=== PATIENT | female | born 1955 | race Caucasian/White ===

== ENCOUNTER 2021-06-27 20:48 | Emergency (ER) | payer MEDICAID ==
[~2021-06-27] VITALS: Ht 152.4 cm; Wt 52.0 kg
[2021-06-27] MEDS ORDERED: HYDROCODONE/ACETAMINOPHEN 5/325MG TABLET PO STA (23:33)
[2021-06-27 23:43] VITALS: BP 137/70
[2021-06-28 00:08] LABS: BASOPHILS % 1.3 % (0.0-2.0); EOSINOPHILS % 2.6 % (0.0-5.0); HEMOGLOBIN. 14.2 g/dL (12.0-16.0); LYMPHOCYTES % 41.3 % (20.0-50.0); MEAN CORPUSCULAR HEMOGLOBIN 31.7 pg (28.0-32.0); MEAN CORPUSCULAR VOLUME 91.3 fL (81.0-99.0); MEAN PLATELET VOLUME 8.3 fl (7.4-10.4); MONOCYTES % 6.2 % (2.0-8.0); NEUTROPHILS % 48.6 % (40.0-76.0); PLATELET 182 x1000/uL (130-400); RED BLOOD CELL COUNT 4.49 mill/uL (4.2-5.4); RED CELL DISTRIBUTION WIDTH 13.5 % (11.6-14.6)
[2021-06-28 00:16] LABS: CHLORIDE 111 mEq/L (98-107)
== END 2021-06-28 00:49 | disposition home or self-care (01) ==
LOC: ER 20:48
DX: K21.9 Gastro-esophageal reflux disease without esophagitis (principal); Z90.49 Acquired absence of other specified parts of digestive tract
CPT/HCPCS: 36415; 71045; 80053; 83880; 84484; 85025; 99284

== ENCOUNTER 2023-05-05 14:51 | Emergency (ER) | payer MEDICAID, OTHER ==
[~2023-05-05] VITALS: Ht 162.6 cm; Wt 65.0 kg
[2023-05-05 14:55] VITALS: BP 117/79; PULSE 82; RESP 16; TEMP 98.2; O2SAT 98
[2023-05-05] MEDS ORDERED: IBUPROFEN 600MG TABLET PO NR (18:00)
[2023-05-05] MEDS ORDERED: IBUPROFEN 600MG TABLET PO ONE (18:00)
== END 2023-05-05 23:13 | disposition left against medical advice (07) ==
LOC: ER 15:06
DX: M25.512 Pain in left shoulder (principal); M54.2 Cervicalgia; K21.9 Gastro-esophageal reflux disease without esophagitis; Z90.49 Acquired absence of other specified parts of digestive tract; Z88.0 Allergy status to penicillin; Z88.8 Allergy status to other drugs, medicaments and biological substances; V98.8XXA Other specified transport accidents, initial encounter; W22.19XA Striking against or struck by other automobile airbag, initial encounter; Y93.89 Activity, other specified; Y92.89 Other specified places as the place of occurrence of the external cause; Y99.8 Other external cause status
CPT/HCPCS: 99283